=== PATIENT | male | born 1950 | race Caucasian/White ===

== ENCOUNTER → 2016-08-26 | Outpatient (CLI) | payer OTHER ==
[~2016-08-26] VITALS: Ht 152.4 cm; Wt 81.6 kg
[~2016-08-26] MED LIST: VENLAFAXINE HC150 M1 PO
--- NOTE | ~2016-08-26 | S ---
[facility] [place] [address] SURGICAL PATH RPT PROCEDURE Name: HARRY POWELL [facility]#: [id number] Admission: 08/26/16 Date of : 52 Discharge: Report #: [id number] Path Case #: [id number] PATHOLOGY REPORT COLLECTION DATE: 08/26/2016 RECEIVED DATE: 08/27/2016 SUBMITTING PHYS: Dr. Jarred Garay OTHER PHYS: Dr. Seferino Bruno SPECIMEN(S) RECEIVED: A.Rectal polyp * * * * * * * * * * * * FINAL DIAGNOSIS: Polyp, rectal polyp, endoscopic biopsy: - Hyperplastic polyp. - Negative for dysplasia. PATHOLOGIST: Odalys Victoria M.D. REPORT ELECTRONICALLY SIGNED BY: Odalys Victoria M.D. DATE/TIME: 08/28/2016 16:30 * * * * * * * * * * * * GROSS PATHOLOGY: Received in formalin labeled "Harry Powell, rectal polyp," are 2 segments of mcneal soft tissue measuring 0.5 x 0.3 x 0.2 cm in aggregate dimensions and ranging from 0.2 to 0.3 cm in maximum dimension. The specimen is submitted entirely in cassette A1. (MEGAN; 08/27/2016) CLINICAL HISTORY: History of colon polyp INITIAL CPT CODE(S): A; 01118 Professional services performed by [facility] at [facility] [address], [place] [address] Technical services performed by [facility] at [address] [place] [address] [address], [place] [address]. [facility] [address] [place] [address] SURGICAL PATH RPT PROCEDURE Name: HARRY POWELL Room #: REG DEBO Richards#: [id number] Admission: 08/26/16 Date of : 52 Discharge: Report #: [id number] Path Case #: [id number] [address] PHONE: [phone] DIRECTOR: Carlos Gonzalez M.D. * * * END OF REPORT * * *
--- NOTE | ~2016-08-26 | P ---
[facility] [place] [address] PROCEDURE REPORT Name: STEPHEN POWELL Room #: REG [facility]#: [id number] Admission: 08/26/16 Attend Phys: Jarred Garay MD Discharge: Date of : 52 Report #: [id number] THIS REPORT FOR: //name// CC: JEANETTE Garay OUTPATIENT COLONOSCOPY REPORT BRIEF HISTORY: The patient is a 66-year-old male with a history of colon polyp removed 5 years ago for high risk screening colonoscopy. POSTOPERATIVE DIAGNOSES: 1. A 4 mm flat polyp, rectum. 2. Moderate diverticulosis coli. MEDICATIONS: Deep sedation with propofol per anesthesia. SPECIMEN: Rectal polyp. ESTIMATED BLOOD LOSS: 3 mL. PROCEDURE: Colonoscopy to cecum and terminal ileum with biopsy. FINDINGS: Prior to propofol sedation, procedure of colonoscopy discussed with the patient as well as potential risks and its complications. He indicates he understands and desires to proceed. DESCRIPTION OF PROCEDURE: With the patient in left lateral decubitus position, digital examination was completed, which revealed no abnormalities. Subsequently, the [employer] video colonoscope was introduced into the rectum, advanced under direct vision to the cecum. Done with minimal difficulty. The cecum was identified by the ileocecal valve and the appendiceal orifice. I was able to visualize the distal segment of terminal ileum, which was inspected and noted to be unremarkable. At that point, the scope was slowly withdrawn and careful circumferential views obtained including retroflexing the scope in the rectum. Upon slow withdrawal of the scope, the prep was found to be good for the most part, there were couple areas where there was some material remaining. We were able to suction some of this away. We were also able to wash and lavage and displace this material, so overall reasonably good views were obtained throughout the colon. As we withdrew the scope, the mucosa was within normal limits, normal vascular pattern, normal light reflex. No abnormalities were noted until we reached the sigmoid colon, there was noted to be moderately severe diverticular disease without endoscopic evidence of diverticulitis. As the scope was withdrawn, no additional abnormalities were seen until the rectum was reached and a 4 mm flat polyp was seen and removed by biopsy. Scope was withdrawn. The patient tolerated the procedure well. [address] [address] PROCEDURE REPORT Name: STEPHEN POWELL Room #: REG [facility].#: [id number] Admission: 08/26/16 Attend Phys: Jarred Garay MD Discharge: Date of : 52 Report #: [id number] CONDITION OF THE PATIENT UPON DISCHARGE: Following procedure, the patient drowsy, aroused, conversant and will be discharged home when fully ambulatory. INSTRUCTIONS TO THE PATIENT AND FAMILY AT THE TIME OF DISCHARGE: We will follow up on the path of the polyp. He gives a history of one previous polyp. I did not have those records. If the polyp is an adenoma, he should return in 5 years if not 10 years may be indicated. He will return to care of Dr. Jeanette Bruno, return to see me as needed. Last colonoscopy was 5 years ago per the patient report. Withdrawal time from the cecum was 15 minutes. <ELECTRONICALLY SIGNED> By: Jarred Garay MD 08/26/16 1422 [id number] Jarred Garay MD /nt
== END ==
LOC: GI 07:01
DX: Z12.11 Encounter for screening for malignant neoplasm of colon (principal); K62.1 Rectal polyp; K57.30 Diverticulosis of large intestine without perforation or abscess without bleeding; F41.9 Anxiety disorder, unspecified; F32.9 Major depressive disorder, single episode, unspecified; Z87.891 Personal history of nicotine dependence; G47.33 Obstructive sleep apnea (adult) (pediatric); Z90.49 Acquired absence of other specified parts of digestive tract; K21.9 Gastro-esophageal reflux disease without esophagitis
CPT/HCPCS: 62110; 62900